=== PATIENT | male | born 1955 | race Caucasian/White ===

== ENCOUNTER 2018-06-13 17:35 | Emergency (ER) | payer MEDICARE, OTHER ==
[2018-06-13 18:02] VITALS: BP 138/78
--- NOTE | 2018-06-13 19:03 | UC ---
Ear Complaint HPI - HPI Summary HPI Summary: 63 y/o male presents to the urgent care c/o productive cough w/ mild wheezing and B/L ear pain worsening for the past 2 days. Pt reports About 12 days ago he started w/ mild common cold and he travelled to [facility] and he developed nosebleed w/ left ear perforation. He was Rx Augmenting at a clinic in [place]. He has been taking Abx w/o any improvement since now cough is worse and has decrease hearing and pressure on both ear. He just returned from [place] 2 days ago. Pt has been taking his Inhaler for his COPD lately. He request a Chest X-ray to make sure he doesn't have pneumonia. Pain is 3/10. Pt has been taking also Mucinex PO. Cough is producing a yellowish phlegm. Pt denies SOB, difficulty breathing, chest pain, dizziness, KELLY, abdominal pain, N/V /D. Pt also chews tobacco - History of Current Complaint Chief Complaint: UCGeneralIllness Stated Complaint: EAR COMPLAINT Time Seen by Provider: 06/13/18 19:00 Hx Obtained From: Patient Onset/Duration: Lasting Weeks - 12 days, Still Present, Worse Since - 2 days Severity Initially: Mild Severity Currently: Moderate Pain Intensity: 3 Pain Scale Used: 0-10 Numeric Alleviating Factors: OTC Meds Associated Signs/Symptoms: Positive: Hearing Loss, URI Symptoms Related History: Smoking - Allergies/Home Medications Allergies/Adverse Reactions: Allergies Allergy/AdvReac Type Severity Reaction Status Date / Time hydrocodone AdvReac Agitation Verified 06/13/18 17:57 morphine AdvReac Headache Verified 06/13/18 17:57 Home Medications: Home Medications Chlorthalidone TAB* [Hygroton TAB*] 25 mg PO DAILY 06/13/18 [History Confirmed 06/13/18] Dabigatran CAP(NF) [Pradaxa CAP(NF)] 75 mg PO DAILY 06/13/18 [History Confirmed 06/13/18] Digoxin TAB* [Lanoxin TAB*] 0.125 mg PO DAILY 06/13/18 [History Confirmed ] Lisinopril TAB* [Prinivil TAB 10 MG*] 20 mg PO DAILY 06/13/18 [History Confirmed 06/13/18] Nebivolol TAB (NF) [Bystolic TAB (NF)] 20 mg PO DAILY 06/13/18 [History Confirmed 06/13/18] [place]-3 Fatty Acids/Fish Oil [[place] 3 1,000 mg Softgel] 1 cap PO DAILY 06/13/18 [History Confirmed 06/13/18] lamoTRIgine [Subvenite] 25 mg PO DAILY 06/13/18 [History Confirmed 06/13/18] PMH/Surg Hx/FS Hx/Imm Hx Previously Healthy: Yes Cardiovascular History: Hypertension, Pacemaker/ICD Psychological History: Anxiety - Surgical History Surgical History: Yes Surgery Procedure, Year, and Place: knee. shoulders bilat. appy. heart cath and ablations. pacer - Family History Known Family History: Positive: Cardiac Disease, Hypertension Family History: skin cancer - Social History Occupation: Employed Full-time Lives: With Family Alcohol Use: Rare Substance Use Type: None Smoking Status (MU): Heavy Every Day Tobacco Smoker Type: Cigarettes, Smokeless Tobacco Amount Used/How Often: occasional use Review of Systems Constitutional: Negative Skin: Negative Eyes: Negative ENT: Ear Ache - B/L ear pressure, Nasal Discharge - yellowish, Sinus Congestion Respiratory: Cough - producite yellowihs phlegm, Other - wheezing Cardiovascular: Negative Gastrointestinal: Negative Genitourinary: Negative Motor: Negative Neurovascular: Negative Musculoskeletal: Negative Neurological: Negative Psychological: Negative Is Patient Immunocompromised?: No All Other Systems Reviewed And Are Negative: Yes Physical Exam - Summary Physical Exam Summary: Vital Signs Reviewed: Yes General: well developed, well nourished obese male sitting in the examining table w/o any apparent distress Eyes: Positive: Conjunctiva Clear - PERRLA, EOMI, fundi grossly normal ENT: Positive: Normal ENT inspection, Hearing grossly normal, Pharynx normal, Nasal congestion - edematous and erythematous nasal mucosa, Nasal drainage - yellowish drainage, TMs normal. Negative: Tonsillar swelling, Tonsillar exudate Neck: Positive: Supple, Nontender, No Lymphadenopathy Respiratory: no orthopnea or dyspnea. Able to speak in full sentences, no retractions or accessory muscle use, no tripod position, stridor, or head bobbing. Positive breath sounds bilaterally. diffuse scattered wheezing and rhonchi on b/L lungs, no crackles or rales. Cardiovascular: Positive: RRR, No Murmur, Pulses Normal, Brisk Capillary Refill Abdomen Description: Positive: Nontender, No Organomegaly, Soft. Negative: CVA Tenderness (R), CVA Tenderness (L) Bowel Sounds: Positive: Present Musculoskeletal Exam: Normal Musculoskeletal: Positive: Strength Intact, ROM Intact, No Edema Neurological Exam: Normal Psychological Exam: Normal Skin Exam: Normal Triage Information Reviewed: Yes Vital Signs: Initial Vital Signs Temp 98.3 F 06/13/18 17:50 Pulse 80 06/13/18 17:50 Resp 16 06/13/18 17:50 BP 138/78 06/13/18 17:50 Pulse Ox 99 06/13/18 17:50 Ear Complaint Course/Dx - Course Course Of Treatment: 63 y/o male presents to the urgent care c/o productive cough w/ mild wheezing and B/L ear pain worsening for the past 2 days. Pt reports About 12 days ago he started w/ mild common cold and he travelled to [facility] and he developed nosebleed w/ left ear perforation. He was Rx Augmenting at a clinic in [place]. He has been taking Abx w/o any improvement since now cough is worse and has decrease hearing and pressure on both ear. He just returned from [place] 2 days ago. Pt has been taking his Inhaler for his COPD lately. He request a Chest X-ray to make sure he doesn't have pneumonia. Pain is 3/10. Pt has been taking also Mucinex PO. Cough is producing a yellowish phlegm. Pt denies SOB, difficulty breathing, chest pain, dizziness, KELLY, abdominal pain, N/V/D. Pt also chews tobacco. Hx obtained. Pt w / a COPD exacerbation due to acute bronchitis on examiantion.Chest X-ray ordered to r/o pneumonia. Impression: No active Cardiopulmonary disease observed. Pt with scattered wheezing on both lungs. O2sat: 99% Pt is a heavy smoker. Prednisone 60 mg PO ordered and Duoneb treatment ordered. Pt tolerated well medications and lungs improved. Pt states feeling better. Rx Doxycycline PO , Prednisone taper dose and advised to continue w/ Albuteol Inhaler and Mucinex. Strongly advised to f/u with PCP or [facility] [employer] for further management om his COPD. Pt understood and agreed with D/C instructions and left the clinic hemodynamically stable. - Differential Dx/Diagnosis Differential Diagnosis/HQI/PQRI: Cerumen Impaction, Otitis Externa, Otitis Media , URI, Other - bronchitis, pneumonai, COPD exacerbation Provider Diagnoses: 1- COPD exacerbation due to acute bronchitis. 2- Wheezing Discharge - Sign-Out/Discharge Documenting (check all that apply): Patient Departure All imaging exams completed and their final reports reviewed: No - Discharge Plan Condition: Stable Disposition: HOME Prescriptions: DOXYcycline CAP(*) [DOXYcycline 100MG CAP(*)] 100 mg PO BID #20 cap predniSONE TAB* [Deltasone 20 MG TAB*] 20 mg PO DAILY #8 tab Patient Education Materials: COPD (Chronic Obstructive Pulmonary Disease) (ED) , Wheezing (ED) Referrals: Reyes Franco MD [Primary Care Provider] - 3 Days Additional Instructions: 1-Please take full course of antibiotic to avoid resistance. Stop taking Augmentin PO 2-Take Prednisone PO tabs taper dose starting tomorrow as directed and use the albuterol inhaler you have at home to alleviate wheezing. Increase fluid intake, rest and eat well. 3- If symptoms do not improve or worsen or your develop SOB with fever and severe wheezing please go immediately to the ER further evaluation and treatment. 4- F/u with your PCP in 3 days if not improvement of symptoms for further management on your COPD - Billing Disposition and Condition Condition: STABLE Disposition: Home
[2018-06-13] MEDS ORDERED: predniSONE TAB* 20 MG PO ONE (19:15)
[2018-06-13] MEDS ORDERED: Albuterol/Ipratropium NEB.SOL* Albuterol 2.5 MG/Ipratropium 0.5 MG 3 ML INH ONE (19:16)
--- NOTE | 2018-06-14 08:19 | RAD ---
Indication: Productive cough 2 views of the chest including dual energy PA views are reviewed. Comparison is made with previous exam dated September 11, 2017. No mediastinal shift is noted. Heart is of normal size and configuration. Pacemaker leads are in place. Lung cheney demonstrate no pleural fluid, pneumonia or pneumothorax. No alveolar consolidation is noted. IMPRESSION: No active cardiopulmonary disease is noted. R0
== END 2018-06-13 20:16 | disposition home or self-care (01) ==
LOC: UCCORT 17:35
DX: J44.1 Chronic obstructive pulmonary disease with (acute) exacerbation (principal); R06.2 Wheezing; I10 Essential (primary) hypertension; Z95.810 Presence of automatic (implantable) cardiac defibrillator; Z79.01 Long term (current) use of anticoagulants; Z88.5 Allergy status to narcotic agent; F17.210 Nicotine dependence, cigarettes, uncomplicated
CPT/HCPCS: 71046; 99212; A9270-GY; G0463; J7512

== ENCOUNTER 2021-07-04 12:14 | Observation (INO) ==
[~2021-07-04 12:14] MED LIST: Buffered Lidocaine 1% SYRIN 1 ml INTRADERM ONE; Bupivacaine 0.5% SDV PF 30ML VIAL ONE; Ketamine HCL 50 mg/ml 10 ml VIAL (500 MG) ONE; Lactated Ringers 1000 ml BAG 1,000 ML IV SCH; Midazolam 5 mg/5 ml VIAL 1 mg/ml 5 ml VIAL (5 mg) ONE; Phenylephrine IV 10 MG/ML 1 ml VIAL ONE; Propofol 0 MG/0 ML BTL ONE
[2021-07-04] MEDS ORDERED: ceFAZolin 2 GM in NS PREMIX 2 GM/100 ML BAG IVPB ONE (12:35)
[2021-07-04] MEDS ORDERED: Midazolam 2 mg/2 ml VIAL 1 mg/ml 2 ml VIAL (2 mg) ONE (14:37)
[2021-07-04] MEDS ORDERED: Lidocaine 2% PF 5 ML VIAL ONE ×2 (14:40→17:55)
[2021-07-04] MEDS ORDERED: fentaNYL 100 mcg/2 ml 50 MCG/ML VIAL ONE ×2 (14:40→19:47)
[2021-07-04] MEDS ORDERED: Propofol 10 MG/ML 20 ML BTL ONE ×2 (14:40→16:30)
[2021-07-04] MEDS ORDERED: Ropivacaine 5 MG/ML 20 ML VIAL 0.5% (100 MG) ONE (14:47)
[2021-07-04] MEDS ORDERED: Lactulose 30 ml UDC PO PRN ×2 (15:14→19:06)
[2021-07-04] MEDS ORDERED: diPHENhydraMINE IV 50 MG/ML 1 ml VIAL (BENADRYL) IV PRN ×2 (15:14→19:06)
[2021-07-04] MEDS ORDERED: diPHENhydraMINE 25 mg TAB PO PRN ×2 (15:14→19:06)
[2021-07-04] MEDS ORDERED: Ondansetron ODT 4 mg TAB 4 MG TAB PO PRN ×2 (15:14→19:06)
[2021-07-04] MEDS ORDERED: Ondansetron 4 mg VIAL 2 MG/ML 2 ml VIAL IV PRN ×2 (15:14→19:06)
[2021-07-04] MEDS ORDERED: Magnesium Hydroxide LIQ 30 ML UDC PO PRN ×2 (15:14→19:06)
[2021-07-04] MEDS ORDERED: HYDROmorphone 1 MG/1 ML SYRINGE ONE ×2 (15:37→16:22)
[2021-07-04] MEDS ORDERED: Dexamethasone IV 4 MG/ML VIAL 1 ml VIAL ONE (15:44)
[2021-07-04] MEDS ORDERED: Lactated Ringers 1000 ml BAG 1,000 ML IV SCH ×3 (16:00→19:00)
[2021-07-04] MEDS ORDERED: ceFAZolin 1 GM ADVAN 1 GM in NS 0.9% 50 ML 50 ML IVPB SCH (16:00)
[2021-07-04] MEDS ORDERED: Labetalol IV 5 MG/ML 20 ml VIAL ONE ×2 (16:36→20:11)
[2021-07-04] MEDS ORDERED: fentaNYL 100 mcg/2 ml 50 MCG/ML VIAL IV PRN ×2 (17:06→19:57)
[2021-07-04] MEDS ORDERED: DiMENhydriNATE IV 50 mg/ml 1 ml VIAL IV PUSH PRN ×3 (17:06→19:57)
[2021-07-04] MEDS ORDERED: Naloxone 0.4 mg VIAL 0.4 mg/ml 1 ml VIAL IV PRN ×3 (17:06→19:57)
[2021-07-04] MEDS ORDERED: Ondansetron 4 mg VIAL 2 MG/ML 2 ml VIAL ONE ×2 (17:48→19:57)
[2021-07-04] MEDS ORDERED: Acetaminophen IV 1 GM/100ML 100 ML IV ONE (17:48)
[2021-07-04] MEDS ORDERED: hydrALAZINE 20 mg/ml 1 ML Vial IV IV SLOW PU ONE ×2 (18:59→19:54)
[2021-07-04] MEDS ORDERED: hydrALAZINE 20 mg/ml 1 ML Vial IV ONE (19:03)
[2021-07-04] MEDS ORDERED: hydrALAZINE 20 mg/ml 1 ML Vial IV IV SLOW PU PRN ×2 (19:11→20:44)
[2021-07-04] MEDS: fentaNYL 100 mcg/2 ml 50 MCG/ML VIAL IV PRN ×4 (19:49→20:09)
[2021-07-04] MEDS ORDERED: Labetalol IV 5 MG/ML 20 ml VIAL IV PUSH ONE (20:08)
[2021-07-04] MEDS ORDERED: Magnesium Hydroxide LIQ 30 ML UDC PO SCH (21:00)
[2021-07-04] MEDS: Magnesium Hydroxide LIQ 30 ML UDC PO SCH (21:45)
[2021-07-04] MEDS: ceFAZolin 1 GM ADVAN 1 GM in NS 0.9% 50 ML 50 ML IVPB SCH (23:47)
[2021-07-05] MEDS: ceFAZolin 1 GM ADVAN 1 GM in NS 0.9% 50 ML 50 ML IVPB SCH ×2 (07:24→14:06)
[2021-07-05] MEDS ORDERED: Vitamin THERAPEUTIC TAB PO SCH ×2 (09:00)
[2021-07-05] MEDS ORDERED: Fluticasone/Vilanterol MDI(NF) 200/25 MDI INH SCH (09:00)
[2021-07-05] MEDS ORDERED: FLUTICAS/UMECLI/VILANT 100-62.5-25 MDI (NF) INH SCH (09:00)
[2021-07-05] MEDS ORDERED: DABIGATRAN 75 MG PO SCH ×2 (09:00)
[2021-07-05] MEDS ORDERED: DILTIAZEM 240 MG PO SCH (09:00)
[2021-07-05 09:14] LABS: Hematocrit 33 % (42-52); Hemoglobin 10.9 g/dL (14.0-18.0); Mean Corpuscular HGB Conc 33 g/dL (31-36); Mean Corpuscular Hemoglobin 30 pg (27-31); Mean Corpuscular Volume 91 fL (80-94); Mean Platelet Volume 7.3 fL (7.4-10.4); Platelet Count 244 10^3/uL (150-450); Red Blood Count 3.63 10^6 /uL (4.18-5.48); Red Cell Distribution Width 16 % (10-15); White Blood Count 14.6 10^3/uL (3.5-10.8)
[2021-07-05 09:29] LABS: Potassium 3.4 mmol/L (3.5-5.0)
[2021-07-05] MEDS: Magnesium Hydroxide LIQ 30 ML UDC PO SCH (09:35)
[2021-07-05 09:41] LABS: ABS Monocytes 1.6 10^3/ul (0-0.8); ABS Neutrophils 11.9 10^3/ul (1.5-7.7); Lymphocyte % 7.1 %
[2021-07-05] MEDS ORDERED: Potassium Chlor 20 meq TAB.ER PO ONE (11:23)
[2021-07-05 11:24] VITALS: BP 141/86
== END 2021-07-05 14:55 | disposition home or self-care (01) ==
LOC: OR 12:14 → SSU 12:14 → OR 18:52
PROVIDERS: ADMIT Orthopaedic Surgery Adult Reconstructive Orthopaedic Surgery; ATTEND Orthopaedic Surgery Adult Reconstructive Orthopaedic Surgery